=== PATIENT | female | born 2000 | race Caucasian/White ===

== ENCOUNTER 2019-02-09 03:51 | Emergency (ER) | payer OTHER ==
[~2019-02-09] VITALS: Ht 149.9 cm; Wt 106.5 kg
[~2019-02-09 03:51] MED LIST: IBUP800T48 PO
[2019-02-09 03:54] VITALS: BP 136/86; PULSE 66; RESP 16; Ht 149.9 cm; Wt 106.5 kg
[2019-02-09] MEDS ORDERED: ACETAMINOPHEN 325 MG TAB PO ONE (05:00)
== END 2019-02-09 05:08 | disposition home or self-care (01) ==
LOC: FTE 03:51
DX: H92.02 Otalgia, left ear (principal)
CPT/HCPCS: Z7502; Z7610; 99282